=== PATIENT | female | born 1975 ===

== ENCOUNTER → 2021-05-22 | Outpatient (CLI) | payer OTHER | END | disposition home or self-care (01) | LOC: LABMN 12:05 | PROVIDERS: ATTEND Legal Medicine | DX: M75.40 Impingement syndrome of unspecified shoulder (principal) | CPT/HCPCS: 72040; 73030-TC ==

== ENCOUNTER → 2021-07-20 | Outpatient (CLI) | payer OTHER | END | disposition home or self-care (01) | LOC: RADMN 10:21 | PROVIDERS: ATTEND Legal Medicine | DX: M75.91 Shoulder lesion, unspecified, right shoulder (principal); M75.100 Unspecified rotator cuff tear or rupture of unspecified shoulder, not specified as traumatic; M75.40 Impingement syndrome of unspecified shoulder | CPT/HCPCS: 73221 ==